=== PATIENT | male | born 1955 | race Caucasian/White ===

== ENCOUNTER 2018-08-18 11:37 | Observation (INO) ==
[2018-08-18] MEDS ORDERED: PNEUMOCOCCAL VACCINE (23 VALENT) 0.5 ML VIAL IM ONE (14:21)
[2018-08-18] MEDS ORDERED: ONDANSETRON 4 MG/2 ML VIAL IV PRN (14:28)
[2018-08-18] MEDS ORDERED: ACETAMINOPHEN 325 MG TABLET PO PRN (14:28)
[2018-08-18] MEDS ORDERED: PROMETHAZINE 25 MG/1 ML VIAL IM PRN (14:28)
[2018-08-18] MEDS ORDERED: DOCUSATE SODIUM 100 MG CAPSULE PO PRN (14:28)
[2018-08-18] MEDS ORDERED: MORPHINE 4 MG/1 ML VIAL IV PRN (14:28)
[2018-08-18 14:51] LABS: Basophils # 0.1 10*3/uL (0.0-0.2); Basophils % 0.4 % (0.0-0.8); Eosinophils % 0.1 % (0.00-10.9); Hematocrit 44.1 VOL% (42.0-52.0); Hemoglobin 14.7 GM/DL (14.0-18.0); Immature Granulocytes % 0.4 %; Immature Granulocytes Absolute 0.06 #; Lymphocytes # 1.6 10*3/uL (1.4-4.0); Lymphocytes % 10.3 % (21.2-54.2); Mean Corpuscular HGB Conc 33.3 GM/DL (32-36); Mean Corpuscular Volume 94.4 FL (87-102); Mean Platelet Volume 10.2 FL (9.6-12.0); Monocytes % 9.4 % (1.7-12.7); Neutrophils % 79.4 % (38.7-73.9); Platelet Count 288 T/CUMM (130-400); Red Blood Count 4.67 MC/CUMM (3.8-5.5); Red Cell Distribution Width 12.2 % (9.3-17.3); White Blood Count 15.8 T/CUMM (4-12)
[2018-08-18 15:10] LABS: Albumin 4.4 G/DL (3.4-5.0); Bilirubin,Total 1.6 MG/DL (0.2-1.0); Calcium 8.9 MG/DL (8.5-10.1); Osmolality,Calculated 268.1 MOS/KG (273-304); Total Protein 8.1 G/DL (6.4-8.3)
[2018-08-18 15:16] LABS: Risk Ratio 1.65; Thyroid Stimulating Hormone 1.48 uIU/ml (0.358-3.74); VLDL CHOLESTEROL 21.4 MG/DL
[2018-08-18] MEDS ORDERED: clonazePAM 0.5 MG TABLET PO PRN (16:06)
[2018-08-18] MEDS ORDERED: NITROGLYCERIN SL 0.4 MG TABLET SL PRN (16:06)
[2018-08-18] MEDS: DEXTROSE 5% LACTATED RINGERS 1,000 ML IV SCH (17:54)
[2018-08-18] MEDS: chlordiazePOXIDE 10 MG CAPSULE PO SCH (20:34)
[2018-08-18] MEDS: APIXABAN 2.5 MG TABLET PO SCH (20:34)
[2018-08-18] MEDS: THIAMINE 100 MG TABLET PO SCH (20:34)
[2018-08-18] MEDS ORDERED: ENOXAPARIN 40 MG/0.4 ML SYRINGE SUBCUT SCH (21:00)
[2018-08-18] MEDS ORDERED: CLOPIDOGREL 75 MG TABLET PO SCH (21:00)
[2018-08-18] MEDS ORDERED: FOLIC ACID 1 MG TABLET PO SCH (21:00)
[2018-08-18] MEDS ORDERED: DILTIAZEM CD 120 MG CAPSULE PO SCH (21:00)
[2018-08-18 21:13] LABS: Troponin I < 0.015 NG/ML (0.00-0.045)
[2018-08-19] MEDS: DEXTROSE 5% LACTATED RINGERS 1,000 ML IV SCH ×2 (01:16→09:09)
[2018-08-19 05:20] LABS: Basophils # 0.1 10*3/uL (0.0-0.2); Basophils % 0.8 % (0.0-0.8); Eosinophils # 0.1 10*3/uL (0.0-0.87); Eosinophils % 0.9 % (0.00-10.9); Hematocrit 39.1 VOL% (42.0-52.0); Hemoglobin 12.7 GM/DL (14.0-18.0); Immature Granulocytes % 0.5 %; Immature Granulocytes Absolute 0.04 #; Lymphocytes # 1.8 10*3/uL (1.4-4.0); Lymphocytes % 23.2 % (21.2-54.2); Mean Corpuscular HGB Conc 32.5 GM/DL (32-36); Mean Corpuscular Volume 96.8 FL (87-102); Monocytes % 11.8 % (1.7-12.7); Neutrophils % 62.8 % (38.7-73.9); Platelet Count 234 T/CUMM (130-400); Red Blood Count 4.04 MC/CUMM (3.8-5.5); Red Cell Distribution Width 12.2 % (9.3-17.3); White Blood Count 7.7 T/CUMM (4-12)
[2018-08-19 05:49] LABS: Albumin 3.4 G/DL (3.4-5.0); Bilirubin,Total 1.2 MG/DL (0.2-1.0); Calcium 8.3 MG/DL (8.5-10.1); Osmolality,Calculated 275.5 MOS/KG (273-304); Total Protein 6.4 G/DL (6.4-8.3)
[2018-08-19 05:56] LABS: Albumin 3.2 G/DL (3.4-5.0); Bilirubin,Direct 0.24 MG/DL (0.0-0.20); Bilirubin,Total 1.2 MG/DL (0.2-1.0); Total Protein 6.3 G/DL (6.4-8.3)
[2018-08-19 08:13] VITALS: BP 112/73
[2018-08-19] MEDS ORDERED: MULTIVITAMIN (BEROCCA) TABLET PO SCH (09:00)
[2018-08-19] MEDS ORDERED: CHOLECALCIFEROL 1,000 UNIT TABLET PO SCH (09:00)
[2018-08-19] MEDS ORDERED: PANTOPRAZOLE 40 MG TABLET PO SCH (09:00)
[2018-08-19] MEDS: APIXABAN 2.5 MG TABLET PO SCH ×2 (09:51→10:02)
[2018-08-19] MEDS: chlordiazePOXIDE 10 MG CAPSULE PO SCH (09:51)
[2018-08-19] MEDS: THIAMINE 100 MG TABLET PO SCH (09:51)
== END 2018-08-19 10:45 | disposition home or self-care (01) ==
LOC: N.TELES → SUATTDRO 13:59
PROVIDERS: ADMIT Internal Medicine; ATTEND Internal Medicine